=== PATIENT | male | born 1965 | race Caucasian/White ===

== ENCOUNTER 2023-08-02 08:09 | Outpatient (CLI) | payer BC ==
[2023-08-02 16:22] LABS: CALCIUM 9.8 mg/dL (8.5-10.3); POTASSIUM 4.7 mmol/L (3.5-4.5)
== END 2023-08-02 08:10 | disposition home or self-care (01) ==
LOC: LAB.S 08:09
DX: E11.65 Type 2 diabetes mellitus with hyperglycemia (principal)
CPT/HCPCS: 36415; 80048

== ENCOUNTER 2023-08-07 07:24 | Outpatient (CLI) | payer BC ==
[2023-08-07 19:58] LABS: ESTIMATED AVERAGE GLUCOSE 154 mg/dL (70-100)
== END 2023-08-07 07:25 | disposition home or self-care (01) ==
LOC: LAB.S 07:24
DX: E11.65 Type 2 diabetes mellitus with hyperglycemia (principal)
CPT/HCPCS: 36415; 83036

== ENCOUNTER 2023-10-14 07:04 | Outpatient (CLI) | payer BC ==
[2023-10-14 14:57] LABS: ESTIMATED AVERAGE GLUCOSE 140 mg/dL (70-100); HEMOGLOBIN A1c% 6.5 % (4.27-6.07)
[2023-10-14 15:07] LABS: POTASSIUM 4.4 mmol/L (3.5-4.5)
== END 2023-10-14 07:05 | disposition home or self-care (01) ==
LOC: LAB.S 07:04
PROVIDERS: ATTEND Student in an Organized Health Care Education/Training Program
DX: E11.65 Type 2 diabetes mellitus with hyperglycemia (principal)
CPT/HCPCS: 36415; 80048; 83036